=== PATIENT | male | born 1960 | race Hispanic/Latino ===

== ENCOUNTER 2021-04-04 15:00 | Emergency (ER) | payer OTHER, MEDICAID, SELFPAY ==
[2021-04-04 15:21] VITALS: BP 133/66; PULSE 84; RESP 18; TEMP 36.1; O2SAT 98; BMI 36.4
--- NOTE | 2021-04-04 15:31 | PC.NURSE ---
pt states he has a sore spot on the lower left leg, no redness or open areas noted. pt c/o recently noting lower extremity pitting edema especially after walking pt walked 2 miles today, minimal swelling noted to area pt is not on blood thinners and recently was able to wean off of his propanolol per his provider's instructions
--- NOTE | 2021-04-04 15:34 | DI.US.S_ITS ---
PROCEDURE: US PERIPH VENOUS LOW EXTREM LT INDICATIONS: tenderness, edema TECHNIQUE: Real-time imaging, as well as color and pulse Doppler interrogation, were performed of the lower extremity deep veins from the inguinal ligament to the popliteal fossa. COMPARISON: None. FINDINGS: The common femoral, femoral and popliteal veins are normally compressible, and free of intraluminal thrombus. Color and pulse Doppler demonstrate normal phasic intraluminal flow. There is normal augmentation response to distal compression maneuver. A small superficial vein in the area of palpable abnormality appears compressible and patent. IMPRESSION: 1. No evidence of deep venous thrombosis in the left lower extremity. Dictated by: Sina Burrows M.D. on 04/04/2021 at 16:43 Approved by: Sina Burrows M.D. on 04/04/2021 at 16:49
--- NOTE | 2021-04-04 15:48 | ED_ITS ---
HPI - Extremity Problem <CLARKE Wolf - Last Filed: 04/04/21 19:33> General Chief complaint: Extremity Problem,Nontraumatic Stated complaint: possible blood clot in left leg Time Seen by Provider: 04/04/21 15:33 Source: patient Mode of arrival: Family Vehicle History of Present Illness HPI Narrative: 60-year-old male presents to the emergency department with left lower extremity swelling, pitting edema, and firm medial aspect of his left ankle which started approximately 1 month ago. Patient denies being on any blood thinners, he denies any history of blood clots, he denies having a doctor or taking any medication although he does have a history of hypertension and used to be on amlodipine and propanolol. He uses the walk-in clinic when he needs something other [place] he came into the emergency department today for a possible ultrasound of his left lower extremity. Denies any recent trauma, he denies any open wounds, he denies any redness or pain other than if he pushes on it. Patient denies any chest pain, shortness of breath with activity, he states that he is active and walks a few miles a day, he denies any pain with ambulation or rest. Related Data Allergies Allergy/AdvReac Type Severity Reaction Status Date / Time No Known Drug Allergies Allergy Verified 04/04/21 15:18 Review of Systems <CLARKE Wolf - Last Filed: 04/04/21 19:33> Review of Systems Narrative: General: denies fever, chills, malaise, sweats, fatigue Head/Neck: denies headache, neck pain, dizziness Eyes: denies visual changes, eye pain Cardio: denies chest pain, palpitations, edema Respiratory: denies dyspnea, cough, orthopnea GI: denies abdominal pain, nausea, vomiting, or diarrhea : denies dysuria, hematuria, urinary retention, frequency or incontinence MSK: denies joint pain, muscle weakness Skin: denies rash, itching, ecchymosis, erythema, skin lesions or other Neuro: denies numbness, tingling Patient History <CLARKE Wolf - Last Filed: 04/04/21 19:33> Social History Smoking Status: Never smoker Smoking Status: Never smoker alcohol intake frequency: 0-2 drinks per day Substance Use Type: does not use Exam <CLARKE Wolf - Last Filed: 04/04/21 19:33> Narrative Exam Narrative: Independently reviewed vitals signs and nursing notes. General: Awake, alert, well-nourished and developed, nontoxic, no cardiorespiratory distress Head/Neck: Atraumatic, neck full range of motion, trachea midline, no JVD or lymphadenopathy. Supple, nontender, no meningeal signs. Eyes: Pupils equal round and reactive, EOMI, conjunctiva normal, no scleral icterus or injections Nose: nares patent, no rhinorrhea Mouth/Throat: moist mucus membranes Cardio: Regular rate and rhythm, Respiratory: respirations unlabored without wheezing, stridor, or rales. No retractions. GI: Abdomen soft, nontender, nondistended, no hepato-spenomegaly MSK: Moves all extremities, neurovascularly intact, no flank tenderness, left lower extremity with 3+ pitting edema around his ankle, no edema over his left tibial tuberosity, no signs of trauma, right ankle with 1+ pitting edema, firm area over medial aspect of left distal lower extremity with pitting edema with concern for DVT, ultrasound pending Skin: Normal capillary refill, no rash, no erythema, ecchymosis, open wounds Neuro: Normal speech and cognition, normal gait, A&O x3 Initial Vital Signs Initial Vital Signs: Vital Signs Temperature 97.0 F L 04/04/21 15:21 Pulse Rate 84 04/04/21 15:21 Respiratory Rate 18 04/04/21 15:21 Blood Pressure 133/66 04/04/21 15:21 Pulse Oximetry 98 04/04/21 15:21 <Michelle Aquino DO - Last Filed: 04/06/21 08:00> Initial Vital Signs Initial Vital Signs: Vital Signs Temperature 97.0 F L 04/04/21 15:21 Pulse Rate 84 04/04/21 15:21 Respiratory Rate 18 04/04/21 15:21 Blood Pressure 133/66 04/04/21 15:21 Pulse Oximetry 98 04/04/21 15:21 Course <CLARKE Wolf - Last Filed: 04/04/21 19:33> Orders Ordered: ED Orders 04/04/21 15:34 US periph venous low extrem lt Stat Vital Signs Vital signs: Vital Signs - 8 hr 04/04/21 15:21 04/04/21 17:55 Temperature 97.0 F L Pulse Rate 84 70 Respiratory Rate 18 16 Blood Pressure 133/66 133/71 Pulse Oximetry 98 95 <Michelle Aquino DO - Last Filed: 04/06/21 08:00> Orders Ordered: ED Orders 04/04/21 15:34 US periph venous low extrem lt Stat Vital Signs Vital signs: Vital Signs - 8 hr 04/04/21 15:21 04/04/21 17:55 Temperature 97.0 F L Pulse Rate 84 70 Respiratory Rate 18 16 Blood Pressure 133/66 133/71 Pulse Oximetry 98 95 MDM - Extremity (Nontraumatic) <KARIS WolfP - Last Filed: 04/04/21 19:33> Imaging Data US - DVT: Radiologist's Impression: PROCEDURE:? US PERIPH VENOUS LOW EXTREM LT ? INDICATIONS:? tenderness, edema ? TECHNIQUE:? Real-time imaging, as well as color and pulse Doppler interrogation, were performed of the lower extremity deep veins from the inguinal ligament to the popliteal fossa.? ? COMPARISON:? None. ? FINDINGS:? The common femoral, femoral and popliteal veins are normally comp ressible, and free of intraluminal thrombus.? Color and pulse Doppler demonstrate normal phasic intraluminal flow.? There is normal augmentation response to distal compression maneuver. ? ? A small superficial vein in the area of palpable abnormality appears compressible and patent. ? IMPRESSION:? ? 1. No evidence of deep venous thrombosis in the left lower extremity. ? ? Dictated by: Sina Burrows M.D. on 04/04/2021 at 16:43 ? ? Approved by: Sina Burrows M.D. on 04/04/2021 at 16:49 ? [facility] Narrative Medical decision making narrative: 60-year-old male presents to the emergency department for left lower extremity swelling which has been present for least 1 month. He is concerned about a lower extremity DVT. Doppler ultrasound was completed without any evidence of deep venous thrombosis in his left lower extremity. Patient does have a small superficial vein with the palpable abnormality be but it was compressible and patent on exam. Patient was referred to primary care as he did not have any primary care providers and instructed to follow-up with them about his upcoming lab work and lower extremity swelling. Patient denies orthopnea, shortness of breath, chest pain, any history of blood clots, or any sensation changes in his lower extremities. Only known medical history is BINTA, he is on CPAP. He end orses that his legs are dependent most of the day while he is sitting at work, this may be why his lower extremities are edematous however multiple etiologies are possible and CHF is on my differential. Patient's vital signs were within normal limits, no concern for any medical problem at this time. Patient is appropriate and amenable to discharge home. Vital signs are stable on repeat examination is unremarkable. Patient has been informed of results. Patient has been given strict return to ER precautions for any new or worsening symptoms. Patient understands to follow up closely with outpatient providers as instructed. Patient understands plan and agrees to discharge home. All questions and concerns answered at this time. Discharge Plan Departure Patient Disposition: Home Clinical Impression: Lower extremity edema Instructions: Edema Activity Restrictions/Additional Instructions: *You have been diagnosed with edema in your lower extremities without any sign of DVT. That is great news, I am glad for you as this is a complicated problem to address. Please follow-up with your prescribing provider about your lab work, unfortunately I do not know anybody in [place] right now for family practice, I do know that [facility] might not be in the same staffing situation as and a [facility] family medicine. Their phone number is [phone]. He may call and schedule a new patient appointment if your insurance covers that facility. I wish you the best, I would do compression stockings, increase your activity, eat healthy, drink plenty of water, less salt, and I hope that you have a good lab report. *What to do: *Please continue to take your regular medications as directed. [ ] New medication prescriptions sent to your pharmacy: [ ] [ ] New medication written as a paper prescription [ x] No new medications given *Please follow up with your primary care provider in 2-3 days, call for an appointment. Let them know you were seen in the Emergency Department and that we ask that you be seen in follow up. We will electronically transmit a record of today's note if your PCP is in our system *If you do not have a primary care provider please contact the [facility] Resource line at [phone]. They will ask some questions about your medical history and help get you set up with a doctor in the community. *Return to Emergency Department if you should have any new, worsening or concerning symptoms, such as [fever greater than 101F, chills, worsening pain, persistent vomiting or other bothersome symptoms] Referrals: [facility] [Provider Group] <Michelle Aquino, - Last Filed: 04/06/21 08:00> [facility] Attending Tala Attestation: I was immediately available in the department for consultation. Documentation has been reviewed.
[2021-04-04 17:55] VITALS: BP 133/71; PULSE 70; RESP 16; O2SAT 95
== END 2021-04-04 17:56 | disposition home or self-care (01) ==
PROVIDERS: Emergency Provider Nurse Practitioner Critical Care Medicine
DX: R60.0 Localized edema (principal)
CPT/HCPCS: 93971; 99281; 99283

== ENCOUNTER → 2021-08-11 14:17 | Outpatient (CLI) | payer OTHER, MEDICAID, SELFPAY ==
--- NOTE | 2021-08-11 | DI.RAD.S_ITS ---
PROCEDURE: XR TIBIA FIBULA LT 2V INDICATIONS: Pain in leg, unspecified TECHNIQUE: 2 views of the tibia and fibula were acquired. COMPARISON: None. FINDINGS: Bones: No fractures or dislocations. No suspicious bony lesions. Soft tissues: No suspicious soft tissue calcifications or masses. IMPRESSION: No evidence acute bony abnormality of the left tibia and fibula Dictated by: Arias Don M.D. on 08/11/2021 at 16:02 Approved by: Arias Don M.D. on 08/11/2021 at 16:03
== END ==
PROVIDERS: PCP Physician Assistant; Referring Provider Physician Assistant; Visit Provider Physician Assistant
DX: M79.605 Pain in left leg (principal)
CPT/HCPCS: 73590